=== PATIENT | male | born 1995 | race Caucasian/White ===

== ENCOUNTER 2022-11-14 13:37 | Observation (INO) | payer BC, SELFPAY ==
[2022-11-14 13:42] VITALS: BP 117/74; PULSE 92; RESP 20; O2SAT 98
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
[2022-11-14 14:16] LABS: Abs Immature Grans 0.06 10^3/uL (0.0-0.06); Absolute Eosinophil Count 0.03 10^3/uL (0.0-0.7); Absolute Lymphocyte Count 1.02 10^3/uL (1.2-3.4); Absolute Monocyte Count 0.56 10^3/uL (0.1-0.8); Absolute Neutrophil Count 9.57 10^3/uL (1.2-6.7); Basophils % 0.4; Eosinophils % 0.3; HCT 43.9 % (40.0-50.0); HGB 15.3 g/dL (13.5-17.5); Immature Grans % 0.5; MCH 31.7 pg (27.0-33.0); MCHC 34.9 % (32.0-36.0); MCV 91 fL (80-95); MPV 10.4 fL (8.0-11.0); Neutrophils % 84.8; Platelet Count 209 10^3/uL (130-400); RBC 4.83 10^6/uL (4.36-5.78); RDW 12.6 % (11.8-14.1); RDW-SD 41.8 fL; WBC 11.28 10^3/uL (4.4-10.8)
[2022-11-14] MEDS: fentaNYL 100 MCG/2 ML VIAL 50 MCG IVP (14:17)
[2022-11-14 14:33] LABS: ALT 44 U/L (16-63); AST 33 U/L (15-37); Albumin 4.2 g/dL (3.4-5.0); Alkaline Phosphatase 95 U/L (46-116); Anion Gap 8.1 mmol/L (3-11); BUN 10 mg/dL (7-18); Bilirubin, Total 0.4 mg/dL (0.2-1.0); CO2 28.9 mmol/L (21.0-32.0); CREATININE 0.9 mg/dL (0.70-1.30); Calcium 8.9 mg/dL (8.5-10.1); Chloride 107 mmol/L (98-107); Glucose 93 mg/dL (74-106); Potassium 3.7 mmol/L (3.5-5.1); Sodium 144 mmol/L (136-145); Total Protein 7.3 g/dL (6.4-8.2)
[2022-11-14 14:38] LABS: Absolute Basophil Count 0.05 10^3/uL (0.0-0.2)
[2022-11-14] MEDS: Normal Saline - Diluent 50 ML VIAL IJ ×2 (14:45→16:12)
[2022-11-14] MEDS: Normal Saline Flush 10 ML SYR IVP ×2 (14:46→19:30)
[2022-11-14] MEDS: Omnipaque 350 MG/ML 100 ML BTL IJ ×2 (14:46→16:09)
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
[2022-11-14] MEDS: HYDROmorphone 2 MG/ML SYR 1 MG IVP (15:04)
[2022-11-14] MEDS: ACETAMINOPHEN 1,000 MG/100 ML BTL 400 MG IVPB (15:04)
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
[2022-11-14] MEDS: Lactated Ringers 1,000 ML 1000 ML IV (15:05)
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
[2022-11-14] MEDS: HYDROmorphone 2 MG/ML SYR 0.5 MG IVP ×2 (16:24→18:17)
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
[2022-11-14] MEDS: Ketorolac 15 MG/ML VIAL IVP (18:17)
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
[2022-11-14 19:20] VITALS: BP 126/78; PULSE 78; RESP 16; O2SAT 98
[2022-11-14 19:24] VITALS: BMI 21.2
[2022-11-14] MEDS: Ondansetron 4 MG/2 ML VIAL IVP (19:30)
[2022-11-14 19:31] VITALS: BP 125/82; PULSE 88; RESP 20; TEMP 36.4; O2SAT 95
[2022-11-14] MEDS: Heparin 5,000 UNITS/ML VIAL 5000 UNITS SC (20:18)
[2022-11-14] MEDS: Lidocaine 5% Patch 1 PATCH TP (20:24)
[2022-11-14 20:26] VITALS: PULSE 66
[2022-11-14 22:59] VITALS: PULSE 66
[2022-11-14] MEDS: oxyCODONE 5 MG TAB PO (23:01)
[2022-11-14] MEDS: Ondansetron O.D.T. 4 MG TABEF PO (23:39)
[2022-11-14] MEDS: MORPHine 2 MG/ML SYR IVP (23:39)
[2022-11-15 00:09] VITALS: BP 119/71; PULSE 82; RESP 16; TEMP 36.8; O2SAT 99
[2022-11-15] MEDS: Ketorolac 15 MG/ML VIAL IVP ×2 (02:05→08:20)
[2022-11-15 06:58] VITALS: PULSE 74
--- NOTE | 2022-11-15 07:00 | DI.RAD_ITS ---
Exam(s) XR CHEST 2V PA LATERAL EXAM: XR CHEST 2V PA LATERAL CLINICAL HISTORY: PTX TECHNIQUE: 2D digital imaging was performed of the chest. Three images were obtained. PA and later al views were obtained. COMPARISON: CT CT CHEST/ABD/PEL W from 11/14/[address] HEAD CERVICAL SPINE WO from 11/14/[address] CAROTID NECK CTA from 11/14/2022 FINDINGS: MEDIASTINUM: Normal. HEART: Normal. PULMONARY VASCULATURE: Normal. LUNGS: Clear. PLEURAL SPACE: No pleural effusion or pneumothorax. There is mild pleural thickening in the right wicho g apex without discernible pneumothorax. BONE:Within normal limits for the patient's age. There is again seen a comminuted fracture of the ri ght clavicle. The patient's known nondisplaced fractures involving the posterior aspects of the righ t 1st and 2nd ribs are not well appreciated. These fractures are best appreciated on the CT scans. OTHER FINDINGS:Normal. IMPRESSION: 1. Acute right clavicular fracture. The known right rib fractures are not appreciated on this examin ation. 2. No visible pneumothorax. DATA REPOSITORY: RADIATION DOSE DELIVERED:
[2022-11-15 07:18] VITALS: BP 125/84; PULSE 61; RESP 17; TEMP 36; O2SAT 99
[2022-11-15] MEDS: Acetaminophen 500 MG TAB 1000 MG PO ×2 (08:19→13:20)
[2022-11-15] MEDS: Ondansetron O.D.T. 4 MG TABEF PO (08:20)
[2022-11-15] MEDS: Heparin 5,000 UNITS/ML VIAL 5000 UNITS SC (08:23)
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
[2022-11-15 08:44] LABS: Abs Immature Grans 0.02 10^3/uL (0.0-0.06); Absolute Basophil Count 0.02 10^3/uL (0.0-0.2); Absolute Eosinophil Count 0.05 10^3/uL (0.0-0.7); Absolute Monocyte Count 0.56 10^3/uL (0.1-0.8); Absolute Neutrophil Count 4.97 10^3/uL (1.2-6.7); Basophils % 0.3; Eosinophils % 0.8; HCT 42.7 % (40.0-50.0); HGB 14.8 g/dL (13.5-17.5); Immature Grans % 0.3; Lymphocytes % 15.1; MCH 31.7 pg (27.0-33.0); MCHC 34.7 % (32.0-36.0); MCV 91 fL (80-95); MPV 10.7 fL (8.0-11.0); Monocytes % 8.5; Platelet Count 180 10^3/uL (130-400); RBC 4.67 10^6/uL (4.36-5.78); RDW 12.9 % (11.8-14.1); WBC 6.62 10^3/uL (4.4-10.8)
[2022-11-15 09:06] LABS: Lipase 13 U/L (16-77)
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
[2022-11-15 11:21] VITALS: BP 114/73; PULSE 70; RESP 16; TEMP 36.3; O2SAT 98
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
== END 2022-11-15 13:22 | disposition home or self-care (01) | DRG 184 ==
LOC: ER 17:58 → MS 19:54
PROVIDERS: Physician Assistant; Admitting Provider Surgery; Emergency Provider Nurse Practitioner Family; Visit Provider Surgery
DX: S22.41XA Multiple fractures of ribs, right side, initial encounter for closed fracture (principal); S27.0XXA Traumatic pneumothorax, initial encounter; S32.038A Other fracture of third lumbar vertebra, initial encounter for closed fracture; S42.021A Displaced fracture of shaft of right clavicle, initial encounter for closed fracture; S70.01XA Contusion of right hip, initial encounter; V19.3XXA Pedal cyclist (driver) (passenger) injured in unspecified nontraffic accident, initial encounter; Y93.55 Activity, bike riding; S30.810A Abrasion of lower back and pelvis, initial encounter
CPT/HCPCS: 36415; 70498; 74177; 80053; 83690; 90471; 96361; 96365; 96374; 96375; 96376; 99285; 70450; 71046; 71260; 72125; 73000; 83735; 85025; G0378; J0131; J1170; J1644; J1885; J2270; J2405; J3010; J3490